=== PATIENT | female | born 1965 | race American Indian/Alaskan Native ===

== ENCOUNTER 2020-06-25 09:15 | Emergency (ER) | payer OTHER ==
--- NOTE | 2020-06-25 10:05 | XRay Report ---
CHEST 1 VIEW INDICATION: Chest Pain COMPARISON: None FINDINGS: Support devices: None Heart: Normal Lungs/Pleura: No acute pulmonary or pleural findings. IMPRESSION: 1. No acute disease. Signer Name: Anuj Russell MD Signed: 06/25/2020 10:00 AM Workstation Name: [id number]
--- NOTE | 2020-06-25 10:55 | Emergency Department Report ---
ED General Adult HPI - General Chief complaint: Pain General Stated complaint: BODY PAIN Time Seen by Provider: 06/25/20 10:39 Source: patient, family Mode of arrival: Wheelchair Limitations: No Limitations - History of Present Illness Initial comments: This is a 54-year-old female who neglected to mention at triage or to her nurse primary assessment that she is in chronic pain management indicator. Instead she stated that she was in treatment at the [facility] in [place]. I reviewed her [employer] which shows monthly prescriptions for buprenorphine by her pain management doctor except in June. Her last prescription was at the end of May. She initially stated that she was not out of her pain medicine. Shortly thereafter she admitted that she was in chronic pain management indicator and that she had an epidural 2 weeks ago. The pain management doctor at that time told her that he wanted to wean her off her narcotics. She is not reported her recurrent essentially allodynia which she states just began again this morning. Patient does admit that she is hurting all over her chest like she has for years. She states that she has had these problems chronically and admits now that she is in chronic pain management. Review of her medical records does not indicate that she has had previous visits here. She states that she has had epidurals for her chronic back pain many times before. She self catheterizes. She denies fever chills or change in her urine. She really does not report any acute symptoms. - Related Data Previous Rx's Medication Instructions Recorded Last Taken Type Nitrofurantoin [place]/M-Cryst 100 mg PO Q12HR #10 capsule 06/25/20 Unknown Rx [Macrobid CAP] Allergies Allergy/AdvReac Type Severity Reaction Status Date / Time No Known Allergies Allergy Unverified 06/25/20 09:18 ED Review of Systems ROS: Stated complaint: BODY PAIN Other details as noted in HPI ED Past Medical Hx - Past Medical History Previous Medical History?: Yes Hx Hypertension: Yes Additional medical history: Neuropathy, Myopathy, Ataxia - Surgical History Past Surgical History?: Yes Additional Surgical History: , Gastric bypass - Social History Smoking Status: Never Smoker Substance Use Type: Alcohol, Prescribed - Medications Home Medications: Home Medications Medication Instructions Recorded Confirmed Last Taken Type Nitrofurantoin [place]/M-Cryst 100 mg PO Q12HR #10 capsule 06/25/20 Unknown Rx [Macrobid CAP] ED Physical Exam - General Limitations: No Limitations ED Course Vital Signs 06/25/20 06/25/20 09:22 11:50 Temperature 97.7 F Pulse Rate 88 80 Respiratory 18 17 Rate Blood Pressure 157/99 Blood Pressure 105/69 [Left] O2 Sat by Pulse 99 99 Oximetry - Reevaluation(s) Reevaluation #1: Upon consideration of the fact that the patient is very cachectic and has never been here before I am going to order blood work and urinalysis to complete her medical screening. She clearly is withdrawing from buprenorphine/and/or experiencing chronic pain. She is not providing an accurate history. Not withstanding, I think it is appropriate to ensure that she does not have any other emergency medical condition. 06/25/20 10:56 ED Medical Decision Making - Lab Data Result diagrams: 06/25/20 11:01 06/25/20 11:01 Laboratory Results - last 24 hr 06/25/20 06/25/20 06/25/20 11:01 11:01 11:15 WBC 11.6 H RBC 5.36 H Hgb 14.7 H Hct 46.1 H MCV 86 MCH 28 MCHC 32 RDW 14.9 Plt Count 237 Lymph % (Auto) 6.6 L [place] % (Auto) 3.0 Eos % (Auto) 0.0 Baso % (Auto) 0.4 Lymph # (Auto) 0.8 L [place] # (Auto) 0.3 Eos # (Auto) 0.0 Baso # (Auto) 0.0 Seg Neutrophils % 90.0 H Seg Neutrophils # 10.5 H Sodium 140 Potassium 3.6 Chloride 103.2 Carbon Dioxide 19 L Anion Gap 21 BUN 17 Creatinine 1.1 Estimated GFR 52 BUN/Creatinine Ratio 15 Glucose 94 Calcium 9.1 Magnesium 2.40 H Total Bilirubin 0.60 Direct Bilirubin 0.2 Indirect Bilirubin 0.4 AST 27 ALT 24 Alkaline Phosphatase 118 Total Creatine Kinase 124 CK-MB (CK-2) 2.4 CK-MB (CK-2) Rel Index 1.9 Troponin T < 0.010 Total Protein 7.8 Albumin 5.0 Albumin/Globulin Ratio 1.8 Urine Color Yellow Urine Turbidity Clear Urine pH 5.0 Ur Specific [place] 1.023 Urine Protein <15 mg/dl Urine Glucose (UA) Neg Urine Ketones Neg Urine Blood Sm Urine Nitrite Pos Urine Bilirubin Neg Urine Urobilinogen < 2.0 Ur Leukocyte Esterase Tr Urine WBC (Auto) 4.0 Urine RBC (Auto) 1.0 U Epithel Cells (Auto) 1.0 Urine Mucus Few Urine Opiates Screen Urine Methadone Screen Ur Barbiturates Screen Ur Phencyclidine Scrn Ur Amphetamines Screen U Benzodiazepines Scrn Urine Cocaine Screen U Marijuana (THC) Screen Drugs of Abuse Note 06/25/20 11:15 WBC RBC Hgb Hct MCV MCH MCHC RDW Plt Count Lymph % (Auto) [place] % (Auto) Eos % (Auto) Baso % (Auto) Lymph # (Auto) [place] # (Auto) Eos # (Auto) Baso # (Auto) Seg Neutrophils % Seg Neutrophils # Sodium Potassium Chloride Carbon Dioxide Anion Gap BUN Creatinine Estimated GFR BUN/Creatinine Ratio Glucose Calcium Magnesium Total Bilirubin Direct Bilirubin Indirect Bilirubin AST ALT Alkaline Phosphatase Total Creatine Kinase CK-MB (CK-2) CK-MB (CK-2) Rel Index Troponin T Total Protein Albumin Albumin/Globulin Ratio Urine Color Urine Turbidity Urine pH Ur Specific [place] Urine Protein Urine Glucose (UA) Urine Ketones Urine Blood Urine Nitrite Urine Bilirubin Urine Urobilinogen Ur Leukocyte Esterase Urine WBC (Auto) Urine RBC (Auto) U Epithel Cells (Auto) Urine Mucus Urine Opiates Screen Negative Urine Methadone Screen Negative Ur Barbiturates Screen Negative Ur Phencyclidine Scrn Negative Ur Amphetamines Screen Negative U Benzodiazepines Scrn Negative Urine Cocaine Screen Negative U Marijuana (THC) Screen Negative Drugs of Abuse Note Disclamer Critical care attestation.: If time is entered above; I have spent that time in minutes in the direct care of this critically ill patient, excluding procedure time. ED Disposition Clinical Impression: Allodynia, Cachexia UTI (urinary tract infection) Qualifiers: Urinary tract infection type: site unspecified Hematuria presence: without hematuria Qualified Code(s): N39.0 - Urinary tract infection, site not specified Chronic pain Qualifiers: Chronic pain type: chronic pain syndrome Qualified Code(s): G89.4 - Chronic pain syndrome Opiate dependence Qualifiers: Substance use status: uncomplicated Qualified Code(s): F11.20 - Opioid dependence, uncomplicated Disposition: - TO HOME OR SELFCARE Is pt being admited?: No Does the pt Need Aspirin: No Condition: Stable Instructions: Chronic Pain (ED), Urinary Tract Infection in Women (ED) Additional Instructions: You have a possible urine infection. This would be confirmed with culture in 2 to 3 days. I am going to start you on an antibiotic until then. See your pain management doctor tomorrow for chronic pain management. Prescriptions: Nitrofurantoin [place]/M-Cryst [Macrobid CAP] 100 mg PO Q12HR #10 capsule Referrals: [facility] [Provider Group] - 2-3 Days Time of Disposition: 12:33
[2020-06-25] MEDS ORDERED: HYDROcodone/ACETAMINOPHEN 5-325 MG TAB PO ONE (10:57)
[2020-06-25 11:47] LABS: Basophils % (Auto) 0.4 % (0.0-1.8); Hematocrit 46.1 % (30.3-42.9); Hemoglobin 14.7 gm/dl (10.1-14.3); Lymphocytes # (Auto) 0.8 K/mm3 (1.2-5.4); Lymphocytes % (Auto) 6.6 % (13.4-35.0); Mean Corpuscular HGB Conc 32 % (30-34); Mean Corpuscular Volume 86 fl (79-97); Monocytes # (Auto) 0.3 K/mm3 (0.0-0.8); Platelet Count 237 K/mm3 (140-440); Red Blood Count 5.36 M/mm3 (3.65-5.03); Red Cell Distribution Width 14.9 % (13.2-15.2)
[2020-06-25 11:48] LABS: Bilirubin,Urine NEG (Negative); Blood,Urine SM (Negative); Color,Urine Yellow (Yellow); Mucus,Urine FEW /HPF; Protein,Urine <15 mg/dL mg/dL (Negative); Urobilinogen,Urine < 2.0 mg/dL (<2.0)
[2020-06-25 11:52] VITALS: BP 105/69
[2020-06-25 11:54] LABS: Amphetamine Screen,Urine Negative; Benzodiazepines Screen,Urine Negative; Cannabinoid Screen,Urine Negative; Cocaine Screen,Urine Negative; Methadone Screen,Urine Negative; Opiate Screen,Urine Negative
[2020-06-25 11:58] LABS: Creatine Kinase MB 2.4 ng/mL (0.0-4.0)
[2020-06-25 12:02] LABS: Alanine Aminotransferase 24 units/L (7-56); BUN/Creatinine Ratio 15; Bilirubin,Direct 0.2 mg/dL (0-0.2); Blood Urea Nitrogen 17 mg/dL (7-17); Calcium 9.1 mg/dL (8.4-10.2); Hemolysis Index 40
== END 2020-06-25 13:07 | disposition home or self-care (01) ==
LOC: ED 09:15
DX: N39.0 Urinary tract infection, site not specified (principal); F11.20 Opioid dependence, uncomplicated; R20.8 Other disturbances of skin sensation; R64 Cachexia; G89.29 Other chronic pain; Z68.22 Body mass index [BMI] 22.0-22.9, adult; I10 Essential (primary) hypertension; Z98.890 Other specified postprocedural states; Z79.899 Other long term (current) drug therapy
CPT/HCPCS: 36415; 71045; 80048; 80076; 80307; 81001; 82550; 82553; 83735; 84484; 85025; 93005